=== PATIENT | female | born 1970 ===

== ENCOUNTER 2017-06-29 11:43 | Emergency (ER) | payer SELFPAY ==
--- NOTE | 2017-06-29 13:40 | UC ---
Respiratory Complaint HPI - HPI Summary HPI Summary: 1 WEEK OF COUGH, CONGESTION, ST, SINUS PRESSURE, FEVER. STATES THAT SHE FEELS MUCH BETTER WITH SX ALMOST COMPLETELY RESOLVED BUT HAS SOME PERSISTENT SINUS PRESSURE AND IS CONCERNED ABOUT FLYING IN A FEW DAYS. WILL BE TRAVELING TO [place] AND STAYING FOR A WEEK BEFORE FLYING HOME TO [facility]. - History of Current Complaint Chief Complaint: UCGeneralIllness Stated Complaint: FEVER,COUGH,CONGESTED Time Seen by Provider: 06/29/17 13:12 Hx Obtained From: Patient Hx Last Menstrual Period: 06/17/17 Onset/Duration: Gradual Onset, Lasting Days, Still Present - BUT MUCH IMPROVED Severity Initially: Moderate Severity Currently: Mild Pain Intensity: 0 Pain Scale Used: 0-10 Numeric Character: Cough: Nonproductive Aggravating Factors: Other Alleviating Factors: Spontaneous Resolution Associated Signs And Symptoms: Positive: URI, Sinus Discomfort. Negative: Dyspnea, Fever, Pleuritic Chest Pain, Wheezing, Nasal Congestion, Hoarseness - Allergies/Home Medications Allergies/Adverse Reactions: Allergies Allergy/AdvReac Type Severity Reaction Status Date / Time No Known Allergies Allergy Verified 06/29/17 12:13 Home Medications: Home Medications Acetaminophen [Tylophen] 1 tab PO DAILY PRN 06/29/17 [History Confirmed 06/29/17 ] Ibuprofen TAB* [Advil TAB*] 200 mg PO Q4HR PRN 06/29/17 [History Confirmed 06/29] PMH/Surg Hx/FS Hx/Imm Hx Previously Healthy: Yes - Surgical History Surgical History: None - Family History Known Family History: Negative: Hypertension - Social History Alcohol Use: None Substance Use Type: None Smoking Status (MU): Never Smoked Tobacco Review of Systems Constitutional: Negative ENT: Nasal Discharge Respiratory: Cough Cardiovascular: Negative Gastrointestinal: Negative All Other Systems Reviewed And Are Negative: Yes Physical Exam Triage Information Reviewed: Yes Appearance: Well-Appearing, No Pain Distress, Well-Nourished Vital Signs: Initial Vital Signs Temp 98.6 F 06/29/17 12:16 Pulse 70 06/29/17 12:16 Resp 16 06/29/17 12:16 BP 116/75 06/29/17 12:16 Pulse Ox 98 06/29/17 12:16 Vital Signs Reviewed: Yes Eyes: Positive: Conjunctiva Clear ENT: Positive: Hearing grossly normal, Pharynx normal, TMs normal Neck: Positive: Supple, Nontender, No Lymphadenopathy Respiratory Exam: Normal Cardiovascular Exam: Normal Abdomen Description: Positive: Soft Musculoskeletal: Positive: No Edema Neurological: Positive: Alert Psychological: Positive: Normal Response To Family, Age Appropriate Behavior Skin: Negative: rashes UC Diagnostic Evaluation - Laboratory O2 Sat by Pulse Oximetry: 98 Respiratory Course/Dx - Course Course Of Treatment: PT IS MUCH IMPROVED BUT IS CONCERNED ABOUT AIR TRAVEL WITH PERSISTENT SINUS PRESSURE. ADVISED OTC DECONGESTANT AND/OR NASAL STEROID. - Differential Dx/Diagnosis Provider Diagnoses: ACUTE URI Discharge - Discharge Plan Condition: Stable Disposition: HOME Prescriptions: Fluticasone NASAL SPRAY 50MCG* [Flonase NASAL SPRAY 50MCG*] 2 spray BOTH NARES DAILY #1 btl Patient Education Materials: Upper Respiratory Infection (ED) Referrals: No Primary Care Phys,NOPCP [Primary Care Provider] - Additional Instructions: YOUR SYMPTOMS ARE LIKELY VIRALLY MEDIATED AND SHOULD CONTINUE TO RESOLVE WITH TIME. REST, HYDRATE, OTC MEDS FOR CONGESTION (SUCH SUDAFED) NEEDED. WILL SEND RX FOR NASAL STEROID WELL WHICH MAY BE HELPFUL IF SUDAFED IS NOT EFFECTIVE. SEEK FOLLOW-UP IF YOU ARE NOT IMPROVING OVER THE NEXT 1-2 WEEKS.
== END 2017-06-29 14:28 | disposition home or self-care (01) ==
LOC: UCEAST 11:43
DX: J06.9 Acute upper respiratory infection, unspecified (principal)
CPT/HCPCS: 99202; G0463